=== PATIENT | male | born 1995 | race African-American/Black ===

== ENCOUNTER 2023-04-15 16:29 | Emergency (ER) | payer OTHER ==
[2023-04-15 16:51] VITALS: BP 132/90; PULSE 82; RESP 18; TEMP 97.9; BMI 25.1
== END 2023-04-15 18:19 | disposition home or self-care (01) ==
LOC: JER 16:29
DX: S09.90XA Unspecified injury of head, initial encounter (principal); W22.8XXA Striking against or struck by other objects, initial encounter
CPT/HCPCS: 99282-25